=== PATIENT | male | born 1970 | race African-American/Black ===

== ENCOUNTER 2017-07-31 17:20 | Emergency (ER) | payer OTHER ==
[~2017-07-31] VITALS: Ht 182.9 cm; Wt 74.8 kg
[2017-07-31] MEDS ORDERED: IBUPROFEN 600 MG TAB PO ONE (18:30)
[2017-07-31] MEDS ORDERED: ACETAMINOPHEN 650 mg PER 20 mL UD PO ONE (18:30)
[2017-07-31 18:55] VITALS: BP 127/76
== END 2017-07-31 20:06 | disposition home or self-care (01) ==
LOC: ER 17:30
DX: J02.9 Acute pharyngitis, unspecified (principal)

== ENCOUNTER 2022-08-11 10:04 | Emergency (ER) | payer OTHER ==
[~2022-08-11] VITALS: Ht 182.9 cm; Wt 82.0 kg
[2022-08-11 10:40] VITALS: BP 125/72
== END 2022-08-11 10:49 | disposition left against medical advice (07) ==
LOC: ER 10:04
DX: Z76.0 Encounter for issue of repeat prescription (principal); Z77.22 Contact with and (suspected) exposure to environmental tobacco smoke (acute) (chronic)